=== PATIENT | female | born 1990 | race Caucasian/White ===

== ENCOUNTER 2016-08-19 09:26 | Emergency (ER) | payer MEDICAID, SELFPAY ==
--- NOTE | ~2016-08-19 | ER ---
PATIENT'S NAME: [facility] AGE: 25 Y [address] ROOM: [place] [id number] LOCATION: [facility] ADMIT DATE: 08/19/2016 ER/Outpatient Report DISCHARGE DATE: 08/19/2016 FAMILY PHYSICIAN: PHYSICIAN, NO ATTENDING PHYSICIAN: Ramona Lacey Time of Arrival: 0926 hours. Time of Exam: 0936 hours. IDENTIFICATION: A 25-year-old female with back pain. HISTORY OF PRESENT ILLNESS: The patient is a 25-year-old female, traveling from [place], [place] to visit her mother with her 2 young children in [place]. The patient is traveling along with her children. She has a history of scoliosis and chronic back pain, who today bent over, felt a pop in her back and has pain in her low back. No radiation of her pain. No numbness or tingling. No bowel or bladder problems. She took Motrin without relief. ALLERGIES: SULFA. CURRENT MEDICATIONS: Motrin and Depo-Provera. MEDICAL PROBLEMS: Polycystic ovarian disease and scoliosis. PRIOR SURGERIES: section and d and C. SOCIAL HISTORY: The patient lives in [place], [place]. She is . Tobacco use, denies. Alcohol use, denies. Drug use, denies. REVIEW OF SYSTEMS: All systems reviewed and negative other than what is noted in the HPI. PHYSICAL EXAMINATION: VITAL SIGNS: Height 5 feet 2 inches, weight 155 pounds, blood pressure 127/86, pulse 105, respirations 16, temperature 97.3, saturation is 97% on room air. GENERAL: A 25-year-old female, in no acute distress. HEENT: Head: Normocephalic, atraumatic. Ears: TMs translucent, both ears. PATIENT'S NAME: S[facility]AN [facility] AGE: 25 Y [address] ROOM: [place] [id number] LOCATION: [facility] ADMIT DATE: 08/19/2016 ER/Outpatient Report DISCHARGE DATE: 08/19/2016 FAMILY PHYSICIAN: PHYSICIAN, NO ATTENDING PHYSICIAN: Ramona Lacey Mucosa pink, no lesions. Mouth: No lesions. Pharynx benign. NECK: Supple. No lymphadenopathy. LUNGS: Clear to auscultation. HEART: Regular rate and rhythm. ABDOMEN: Soft, nondistended, nontender. SKIN: Crowell, warm, and dry. No lesions or rashes noted. NEURO: The patient is alert and oriented x4. Cranial nerves 2 through 12 grossly intact. Motor strength 5/5 throughout. Sensation is intact to light touch. She is tender to palpation in lumbar paraspinal muscles. No palpable deformities. IMPRESSION: Acute low back pain. PLAN: Toradol 30 mg IM; Naprosyn 500 mg b.i.d. with food, dispensed 14 with 0 refills. Ice or heat. No lifting. Back pain handout. Follow up with physician of choice in 1-3 days. Follow up sooner if any problems or concerns. The patient understands and agrees, and all questions have been answered. RAMONA LACEY MD CAR/modl /[id number] d: 08/19/161999 t: 08/20/16 0650, OUTPATIENT REPORT
== END 2016-08-19 10:17 | disposition disaster alternative care site (69) ==
LOC: GMED 09:26
DX: M54.5 Low back pain (principal); Z88.2 Allergy status to sulfonamides
CPT/HCPCS: J1885